=== PATIENT | male | born 1965 | race Caucasian/White ===

== ENCOUNTER 2017-05-06 02:15 | Emergency (ER) | payer SELFPAY ==
[~2017-05-06] VITALS: Ht 167.6 cm; Wt 75.0 kg
[~2017-05-06 02:15] MED LIST: ASCORBIC ACID100 MG PO; ASPIRIN325 MG PO; AUGMENTIN875 MG PO; Augmentin PO; Ecotrin PO; Folvite PO; OMEPRAZOLE40 M1 PO; PRINIVIL10 MG PO; PROTONIX40 MG PO; Protonix PO; SERTRALINE HCL100 MG PO; TESSALON PERLE100 MG PO; Thiamine,Vitamin B1 PO; VITAMIN B-1100 MG PO; ZOLOFT100 M1 PO; Zoloft PO
[2017-05-06 03:18] LABS: HEMATOCRIT 41.5 % (38.0-50.0); MCH 33.2 PG (29.0-34.0); MCHC 34.2 G/DL (30.0-36.0); PLATELET COUNT 227 K/uL (156-360); RBC DIS.WIDTH-CV 11.5 % (11.8-14.6); RBC DIS.WIDTH-SD 41.3 % (39-53); RED BLOOD COUNT 4.28 M/uL (4.00-5.50); WHITE BLOOD COUNT 12.1 K/uL (4.1-10.2)
[2017-05-06 03:32] LABS: CHLORIDE 106 mEq/L (99-109); POTASSIUM 3.9 mEq/L (3.7-5.4); SODIUM 138 mEq/L (136-147)
[2017-05-06 03:34] LABS: GLUCOSE 101 mg/dL (70-99)
[2017-05-06 03:35] LABS: ANION GAP 11 MEQ/L (2-14)
[2017-05-06 03:38] LABS: GFR ESTIMATE (CALCULATED) > 59 mL/min/; UREA NITROGEN (BUN) 14 mg/dL (9-23)
[2017-05-06 03:40] LABS: URIC ACID 6.7 mg/dL (3.1-9.2)
[2017-05-06 03:52] LABS: ERTH.SED.RATE 3 MM/HR (0-20)
[2017-05-06 04:03] LABS: SAMPLE HEMOLYSIS CHECK 0; SAMPLE ICTERIC CHECK 0; SAMPLE LIPEMIA CHECK 0
[2017-05-06] MEDS ORDERED: NORCO 5/3251 TABLET PO (04:03)
[2017-05-06] MEDS ORDERED: NAPROXEN500 MG PO (04:03)
[2017-05-06] MEDS ORDERED: KEFLEX500 MG PO (04:12)
[2017-05-06 04:31] VITALS: BP 148/90
[2017-05-06 09:19] LABS: LYME DISEASE SEROLOGY SCREEN NEGATIVE (NEGATIVE)
== END 2017-05-06 04:32 | disposition home or self-care (01) ==
LOC: EME 02:15
PROVIDERS: Physician Assistant
DX: M25.572 Pain in left ankle and joints of left foot (principal); K22.70 Barrett's esophagus without dysplasia; F32.9 Major depressive disorder, single episode, unspecified; X50.3XXA Overexertion from repetitive movements, initial encounter
CPT/HCPCS: 73610; 80048; 84550; 85027; 85651; 86141; 86618; 99281; 99284